=== PATIENT | female | born 1985 | race Two or more races ===

== ENCOUNTER 2025-03-23 21:10 | Emergency (ER) | payer BC ==
[~2025-03-23] VITALS: Ht 165.1 cm; Wt 64.4 kg
[2025-03-23] MEDS ORDERED: ONDANSETRON HCL/PF 4 MG/2 ML VIAL ONE (23:03)
[2025-03-23] MEDS ORDERED: MORPHINE SULFATE INJ 4 MG/ML DISP.SYRIN ONE (23:04)
[2025-03-23] MEDS ORDERED: ASPIRIN EC 325 MG TABLET.DR PO ONE (23:04)
[2025-03-23] MEDS: MORPHINE SULFATE INJ 2 MG/ML DISP.SYRIN IV ONE (23:17)
[2025-03-23] MEDS: ONDANSETRON HCL/PF 4 MG/2 ML VIAL IVP ONE (23:17)
[2025-03-23] MEDS: ASPIRIN EC 325 MG TABLET.DR PO ONE (23:18)
[2025-03-23 23:22] LABS: PLATELET COUNT (AUTO) 223 K/uL (150-450); RED BLOOD CELL COUNT(AUTO) 4.62 MIL/uL (4.0-5.2); RED CELL DISTRIBUTION WIDTH 14.1 % (11.5-15.0); WHITE BLOOD COUNT (AUTO) 7.3 K/uL (4.3-11.0)
[2025-03-23 23:28] LABS: CALCIUM, SERUM 8.9 mg/dL (8.5-10.1); CREATININE 0.6 mg/dL (0.6-1.3); SODIUM SERUM 139 mmol/L (136-145); UREA NITROGEN, BLOOD 7 mg/dL (7-18)
[2025-03-24 01:09] LABS: PREGNANCY TEST URINE QUAL NEGATIVE (NEGATIVE)
[2025-03-24 01:58] VITALS: BP 110/65; TEMP 98; O2SAT 98
== END 2025-03-24 02:00 | disposition home or self-care (01) ==
LOC: ER 21:15
DX: R07.89 Other chest pain (principal)
CPT/HCPCS: 99285; 71045; 93005; 85025; 80048; 84703; 36415 ×2; 84484 ×2; J2270; J2405